=== PATIENT | male | born 1995 | race Caucasian/White ===

== ENCOUNTER 2021-03-19 09:07 | Emergency (ER) | payer SELFPAY ==
[~2021-03-19] VITALS: Ht 177.8 cm; Wt 81.6 kg
[2021-03-19] MEDS ORDERED: methylPREDNISolone SOD SUCC 125 MG/2ML VIAL ONE (09:10)
[2021-03-19] MEDS ORDERED: diphenhydrAMINE HCL 50 MG/ML VIAL ONE (09:10)
[2021-03-19] MEDS ORDERED: EPINEPHRINE (1:1000) 1 MG/ML AMPUL ONE (09:10)
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
[2021-03-19] MEDS ORDERED: FAMOTIDINE/PF INJ 20 MG/2 ML VIAL IV ONE (09:11)
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
--- NOTE | 2021-03-19 09:45 | NUR ---
PATIENT A/OX4, BREATHING EVEN AND UNLABORED, NO SOB NOTED. REDNESS SUBSIDED. DENIES ANY PAIN AT THIS TIME. VSS.
--- NOTE | 2021-03-19 10:00 | NUR ---
Patient discharged to home in stable condition. Written and verbal after care instructions given. Patient verbalizes understanding of instruction. IV removed. Catheter intact and site benign. Pressure and 4x4 applied to site. No bleeding noted.
[2021-03-19 10:16] VITALS: BP 142/80
== END 2021-03-19 10:16 | disposition home or self-care (01) ==
LOC: ER 09:10
DX: T63.441A Toxic effect of venom of bees, accidental (unintentional), initial encounter (principal); Z91.030 Bee allergy status; Y92.89 Other specified places as the place of occurrence of the external cause
CPT/HCPCS: J0171; J1200; J2930; J3490